=== PATIENT | male | born 1935 | race Caucasian/White ===

== ENCOUNTER 2017-07-15 12:34 | Inpatient (IN) | payer MEDICARE, MEDICAID ==
[~2017-07-15] VITALS: Ht 177.8 cm; Wt 64.9 kg
[~2017-07-15 12:34] MED LIST: ACET-2154 PO; ALBU2.5V38 IH; BISA10SU61 RC; CHOL100043 PO; DOCU-141 PO; FLUT1BLS IH; FURO-152 PO; IPRA0.2S6 IH; LEVE750T4 PO; LEVO500T2 PO; OMEP20TA5 PO; RIVA15TA2 PO; WHEA1POW6 PO
--- NOTE | 2017-07-15 13:07 | NUR ---
Pt.was seen by .
[2017-07-15] MEDS ORDERED: DOCU-141 PO (13:09)
[2017-07-15] MEDS ORDERED: GUAI237L83 PO (13:09)
[2017-07-15] MEDS ORDERED: MULT-213 PO (13:09)
[2017-07-15] MEDS ORDERED: LEVO500T2 PO (13:09)
[2017-07-15 14:06] LABS: BASOPHILS % (AUTO) 0.3 % (0.0-2.0); EOSINOPHILS # (AUTO) 0.4 K/uL (0.0-0.7); EOSINOPHILS % (AUTO) 6.3 % (0.0-7.0); HEMATOCRIT 40.6 % (36.7-47.1); HEMOGLOBIN 13.9 g/dL (12.5-16.3); LYMPHOCYTES # (AUTO) 1.8 K/uL (20.0-40.0); LYMPHOCYTES % (AUTO) 30.4 % (20.5-51.5); MEAN CORPUSCULAR HEMOGLOBIN 33.8 uug (23.8-33.4); MEAN CORPUSCULAR HGB CONC 34 g/dL (32.5-36.3); MEAN CORPUSCULAR VOLUME 98.5 fL (73.0-96.2); MONOCYTES # (AUTO) 0.8 K/uL (2.0-10.0); MONOCYTES % (AUTO) 13.2 % (0.0-11.0); NEUTROPHILS # (AUTO) 2.9 K/uL (1.8-8.9); NEUTROPHILS % (AUTO) 49.8 % (38.5-71.5); PLATELET COUNT (AUTO) 189 K/uL (152-348); RED BLOOD CELL COUNT(AUTO) 4.12 MIL/uL (4.06-5.63); WHITE BLOOD COUNT (AUTO) 5.9 K/uL (3.6-10.2)
[2017-07-15 14:30] LABS: CARBON DIOXIDE 27 mmol/L (21-32); CHLORIDE 105 mmol/L (98-107); CREATININE 1.3 mg/dL (0.6-1.3); GLUCOSE 103 mg/dL (74-106); UREA NITROGEN, BLOOD 28 mg/dL (7-18)
[2017-07-15 14:36] LABS: ALANINE AMINOTRANSFERASE 18 U/L (16-63); ALKALINE PHOSPHATASE 123 U/L (50-136); ASPARTATE AMINOTRANSFERASE 16 U/L (15-37); BILIRUBIN,TOTAL 0.8 mg/dL (0.2-1.0); CREATINE KINASE, TOTAL 50 U/L (39-308); TOTAL PROTEIN, SERUM 6.9 g/dL (6.4-8.2)
[2017-07-15 14:55] LABS: *BILIRUBIN,URIN NEGATIVE (NEGATIVE); *BLOOD, URINE NEGATIVE (NEGATIVE); *CLARITY,URINE CLEAR (CLEAR); *COLOR,URINE YELLOW (YELLOW); *KETONES,URINE NEGATIVE (NEGATIVE); *PROTEIN,URINE NEGATIVE (NEGATIVE); *UROBILINOGEN,URINE 0.2 E.U./dl (NORMAL); LEUKOCYTE ESTERASE ,URINE NEGATIVE (NEGATIVE); NITRITE, URINE NEGATIVE (NEGATIVE); PH,URINE 5.5 (5.0-8.0); UGLUCOSE NEGATIVE (NEGATIVE)
[2017-07-15 15:00] LABS: SQUAMOUS EPITHELIAL CELL,UR FEW /HPF (NONE SEEN); WBC,URINE NONE SEEN /HPF (0-3)
[2017-07-15 15:01] LABS: MUCUS,URINE FEW /LPF (0-FEW)
--- NOTE | 2017-07-15 15:01 | NUR ---
Pt.sleeping,no s/s of distress or pain noted.
[2017-07-15] MEDS ORDERED: CEFTRIAXONE 1 G in IV DEXTROSE 5% 50 ML IV ONE (16:25)
[2017-07-15] MEDS ORDERED: ALBUTEROL SULFATE 2.5 MG/ 0.5 ML NEBU NEB ONE (16:25)
[2017-07-15] MEDS ORDERED: methylPREDNISolone SOD SUCC 40 MG/ML VIAL IV ONE (16:30)
[2017-07-15] MEDS ORDERED: IPRATROPIUM BROMIDE 0.5 MG/2.5 ML NEBU NEB ONE (16:30)
[2017-07-15] MEDS ORDERED: CEFTRIAXONE 1 G VIAL ONE (16:54)
[2017-07-15] MEDS ORDERED: methylPREDNISolone SOD SUCC 40 MG/ML VIAL ONE (16:54)
--- NOTE | 2017-07-15 18:20 | NUR ---
pt.watching TV no s/s of distress.
[2017-07-15] MEDS ORDERED: ACETAMINOPHEN 325 MG TABLET PO PRN (18:45)
[2017-07-15] MEDS ORDERED: LEVOFLOXACIN 500 MG/D5W 500 MG in PREMIXED 1 EACH IV SCH (18:45)
[2017-07-15] MEDS ORDERED: ONDANSETRON 4 MG/2 ML VIAL IV PRN (18:45)
[2017-07-15] MEDS ORDERED: MORPHINE SULFATE 2 MG/1 ML DISP.SYRIN IV PRN (18:45)
[2017-07-15] MEDS ORDERED: BISACODYL 10 MG SUPP.RECT RC PRN (18:45)
--- NOTE | 2017-07-15 19:52 | NUR ---
REPORT RECIEVED FROM TUYET FARIA. ASSUMING CARE AT THIS TIME.
--- NOTE | 2017-07-15 20:14 | NUR ---
REPORT GIVEN TO HOMER BIENVENIDO
--- NOTE | 2017-07-15 20:30 | NUR ---
NURSING CLINICAL NOTE: Received patient from ED with a Dx of PNA/Cough. A&O X 4. On 2 L NC, sating well. VSS denies pain. Connected to the farm machinery engine mechanic controlled AFIB. fall and seizure precautions are initiated. will continue to monitor.
--- NOTE | 2017-07-15 20:31 | NUR ---
Pt. admitted to TELE, under care of Dr. RASMUSSEN Belongs List completed.
[2017-07-15 20:49] VITALS: BP 114/56
[2017-07-15] MEDS ORDERED: MORPHINE SULFATE 4 MG/1 ML DISP.SYRIN IV PRN (21:15)
[2017-07-15] MEDS ORDERED: GUAIFENESIN/DEXTROMETHORPHAN 5 ML UDC PO PRN (21:15)
[2017-07-15] MEDS: methylPREDNISolone SOD SUCC 40 MG/ML VIAL IV SCH (22:18)
[2017-07-15] MEDS: DOCUSATE SODIUM 100 MG CAPSULE PO SCH (22:18)
[2017-07-15] MEDS: LEVOFLOXACIN 750MG/D5W 750 MG in PREMIXED 1 EACH IV SCH (22:19)
[2017-07-15] MEDS: LEVETIRACETAM 500 MG TABLET PO SCH (22:29)
[2017-07-16] VITALS: BP 124/66
[2017-07-16 04:00] VITALS: BP 165/66
[2017-07-16 04:30] VITALS: BP 140/59
[2017-07-16] MEDS: methylPREDNISolone SOD SUCC 40 MG/ML VIAL IV SCH ×3 (06:09→21:12)
[2017-07-16] MEDS: PANTOPRAZOLE SODIUM 40 MG TABLET.DR PO SCH (06:09)
[2017-07-16 07:06] LABS: BASOPHILS % (AUTO) 0.1 % (0.0-2.0); HEMATOCRIT 41.5 % (36.7-47.1); HEMOGLOBIN 14.3 g/dL (12.5-16.3); LYMPHOCYTES # (AUTO) 0.6 K/uL (20.0-40.0); LYMPHOCYTES % (AUTO) 9.4 % (20.5-51.5); MEAN CORPUSCULAR HEMOGLOBIN 33.9 uug (23.8-33.4); MEAN CORPUSCULAR HGB CONC 34 g/dL (32.5-36.3); MEAN CORPUSCULAR VOLUME 98.4 fL (73.0-96.2); MONOCYTES # (AUTO) 0.1 K/uL (2.0-10.0); MONOCYTES % (AUTO) 1.6 % (0.0-11.0); NEUTROPHILS # (AUTO) 5.7 K/uL (1.8-8.9); NEUTROPHILS % (AUTO) 88.9 % (38.5-71.5); PLATELET COUNT (AUTO) 162 K/uL (152-348); RED BLOOD CELL COUNT(AUTO) 4.22 MIL/uL (4.06-5.63); WHITE BLOOD COUNT (AUTO) 6.4 K/uL (3.6-10.2)
[2017-07-16 07:16] LABS: ALANINE AMINOTRANSFERASE 17 U/L (16-63); ALKALINE PHOSPHATASE 116 U/L (50-136); ASPARTATE AMINOTRANSFERASE 13 U/L (15-37); BILIRUBIN,TOTAL 0.7 mg/dL (0.2-1.0); CARBON DIOXIDE 25 mmol/L (21-32); CHLORIDE 106 mmol/L (98-107); CHOLESTEROL 132 mg/dL (<200); CREATININE 1.5 mg/dL (0.6-1.3); GLUCOSE 144 mg/dL (74-106); HDL CHOLESTEROL 54 mg/dL (40-60); MAGNESIUM 1.9 mg/dL (1.8-2.4); PHOSPHOROUS 3.1 mg/dL (2.5-4.9); POTASSIUM 4.1 mmol/L (3.5-5.1); TOTAL PROTEIN, SERUM 7.2 g/dL (6.4-8.2); TRIGLYCERIDES 22 MG/DL (30-150); UREA NITROGEN, BLOOD 31 mg/dL (7-18)
[2017-07-16 07:23] LABS: IRON, SERUM 102 ug/dL (50-175)
[2017-07-16] MEDS: CHOLECALCIFEROL 1,000 UNIT TABLET PO SCH (08:05)
[2017-07-16] MEDS: FUROSEMIDE 20 MG/2 ML VIAL IV SCH (08:05)
[2017-07-16] MEDS: MULTIVIT, IRON, MIN NO. 8, FA TABLET PO SCH (08:05)
[2017-07-16] MEDS: FLUTICASONE/VILANTEROL 1 EACH BLST.W.DEV IH SCH (08:06)
[2017-07-16] MEDS ORDERED: DOCUSATE SODIUM 100 MG CAPSULE PO SCH (09:00)
[2017-07-16] MEDS: LEVETIRACETAM 500 MG TABLET PO SCH ×2 (09:59→20:51)
[2017-07-16 10:55] VITALS: BP 113/61
[2017-07-16 15:44] VITALS: BP 103/60
[2017-07-16] MEDS: RIVAROXABAN 15 MG TABLET PO SCH (17:23)
--- NOTE | 2017-07-16 17:58 | NUR ---
PT OBSERVED RESTING IN ROOM, NO SIGNS OF RESPIRATORY DISTRESS, BREATHING EQUALLY. PT IS ON 2 L NASAL CANULA. PT HAS GENERALIZED WEAKNESS AND IS AT BED REST AT THIS TIME. PT IS AOX4, CALM, COOPERATIVE, MEDICATION COMPLIANT. BED AT LOWEST LOCKED POSITION. CONTINUE TO MONITOR FOR SAFETY. PT HAS A HX OF SEIZURES PT IS ON SEIZURE PRECAUTIONS SIDE RAILS PADDED FOR SAFETY.
[2017-07-16 19:00] VITALS: BP 102/46
--- NOTE | 2017-07-16 20:00 | NUR ---
RECEIVED PT AWAKE IN BED, HE'S ALERT AND ORIENTED X4 WITH FORGETFULNESS BUT ABLE TO STATE HIS NEEDS. PT DENIES PAIN OR ANY DISCOMFORT, CALL LIGHT WITHIN PT'S REACH. WILL CONTINUE TO MONITOR PT.
[2017-07-16] MEDS: DOCUSATE SODIUM 100 MG CAPSULE PO SCH (20:52)
[2017-07-16] MEDS: CEFEPIME HCL 1 G in IV DEXTROSE 5% 50 ML IV SCH (20:54)
[2017-07-17] VITALS: BP 108/63
[2017-07-17 04:00] VITALS: BP 110/62
--- NOTE | 2017-07-17 04:05 | NUR ---
PT CONTINUE TO SLEEP, HE IS ON TELE WITH A-FIB RHYTHM AT 100, NO S/S OF PAIN OR DISTRESS AT PRESENT. NO SIGNIFICANT CHANGES IN STATUS. WILL CONTINUE TO MONITOR PT
[2017-07-17] MEDS: PANTOPRAZOLE SODIUM 40 MG TABLET.DR PO SCH (06:27)
[2017-07-17] MEDS: methylPREDNISolone SOD SUCC 40 MG/ML VIAL IV SCH ×3 (06:28→21:36)
[2017-07-17 06:52] LABS: HEMATOCRIT 41.9 % (36.7-47.1); LYMPHOCYTES # (AUTO) 1.1 K/uL (20.0-40.0); MEAN CORPUSCULAR HEMOGLOBIN 32.8 uug (23.8-33.4); MEAN CORPUSCULAR HGB CONC 33 g/dL (32.5-36.3); MEAN CORPUSCULAR VOLUME 98.4 fL (73.0-96.2); MONOCYTES # (AUTO) 0.9 K/uL (2.0-10.0); MONOCYTES % (AUTO) 4.6 % (0.0-11.0); NEUTROPHILS # (AUTO) 16.5 K/uL (1.8-8.9); NEUTROPHILS % (AUTO) 89.4 % (38.5-71.5); PLATELET COUNT (AUTO) 168 K/uL (152-348); RED BLOOD CELL COUNT(AUTO) 4.26 MIL/uL (4.06-5.63)
[2017-07-17 07:09] LABS: WHITE BLOOD COUNT (AUTO) 18.4 K/uL (3.6-10.2)
[2017-07-17 07:17] LABS: CARBON DIOXIDE 30 mmol/L (21-32); CHLORIDE 103 mmol/L (98-107); CREATININE 1.5 mg/dL (0.6-1.3); GLUCOSE 137 mg/dL (74-106); MAGNESIUM 2.3 mg/dL (1.8-2.4); PHOSPHOROUS 4.1 mg/dL (2.5-4.9); POTASSIUM 4.6 mmol/L (3.5-5.1); UREA NITROGEN, BLOOD 45 mg/dL (7-18)
[2017-07-17] MEDS: MULTIVIT, IRON, MIN NO. 8, FA TABLET PO SCH (08:01)
[2017-07-17] MEDS: FLUTICASONE/VILANTEROL 1 EACH BLST.W.DEV IH SCH (08:02)
[2017-07-17] MEDS: CHOLECALCIFEROL 1,000 UNIT TABLET PO SCH (08:02)
[2017-07-17] MEDS: FUROSEMIDE 20 MG/2 ML VIAL IV SCH (08:02)
[2017-07-17] MEDS: LEVETIRACETAM 500 MG TABLET PO SCH ×2 (08:02→21:35)
[2017-07-17] MEDS: CEFEPIME HCL 1 G in IV DEXTROSE 5% 50 ML IV SCH ×2 (08:57→21:35)
[2017-07-17 11:34] VITALS: BP 110/57
[2017-07-17 15:24] VITALS: BP 100/61
[2017-07-17] MEDS: RIVAROXABAN 15 MG TABLET PO SCH (17:44)
--- NOTE | 2017-07-17 18:57 | NUR ---
PT IS CALM, COOPERATIVE, MEDICATION COMPLIANT, IV INTACT, PHYSICAL THERAPY WALKED PT TODAY. PT WAS ABLE TO TOLERATE ACTIVITY. PT WAS TAUGHT BREATHING TECHNIQUES FOR DECREASING ANXIETY. PT VERBALIZES AN UNDERSTANDING AND AGREES TO USE THAT TECHNIQUE WHEN ANXIOUS.
[2017-07-17 20:00] VITALS: BP 95/53
[2017-07-17] MEDS: DOCUSATE SODIUM 100 MG CAPSULE PO SCH (21:35)
[2017-07-17] MEDS: LEVOFLOXACIN 750MG/D5W 750 MG in PREMIXED 1 EACH IV SCH (22:44)
[2017-07-18 04:00] VITALS: BP 99/55
--- NOTE | 2017-07-18 06:00 | NUR ---
Pt slept well, in no acute distress, no SOB. Pt is seizure precaution, no activity of seizures noted. IV antibiotics administered as ordered, no adverse reaction noted. Patient kept clean/dry, repositioned for comfort. Safety measures in place, bed alarm on. Will continue to monitor.
[2017-07-18] MEDS: PANTOPRAZOLE SODIUM 40 MG TABLET.DR PO SCH (06:02)
[2017-07-18 07:03] LABS: HEMOGLOBIN 13.3 g/dL (12.5-16.3); LYMPHOCYTES % (AUTO) 7.6 % (20.5-51.5); MEAN CORPUSCULAR HEMOGLOBIN 33.3 uug (23.8-33.4); MEAN CORPUSCULAR HGB CONC 34 g/dL (32.5-36.3); MEAN CORPUSCULAR VOLUME 97.5 fL (73.0-96.2); MONOCYTES # (AUTO) 0.7 K/uL (2.0-10.0); MONOCYTES % (AUTO) 5.3 % (0.0-11.0); NEUTROPHILS # (AUTO) 11.5 K/uL (1.8-8.9); NEUTROPHILS % (AUTO) 87.1 % (38.5-71.5); PLATELET COUNT (AUTO) 151 K/uL (152-348)
[2017-07-18 07:16] LABS: WHITE BLOOD COUNT (AUTO) 13.2 K/uL (3.6-10.2)
[2017-07-18 07:37] LABS: ALANINE AMINOTRANSFERASE 19 U/L (16-63); ALKALINE PHOSPHATASE 93 U/L (50-136); ASPARTATE AMINOTRANSFERASE 13 U/L (15-37); BILIRUBIN,TOTAL 0.6 mg/dL (0.2-1.0); CARBON DIOXIDE 29 mmol/L (21-32); CHLORIDE 102 mmol/L (98-107); CREATININE 1.3 mg/dL (0.6-1.3); GLUCOSE 129 mg/dL (74-106); MAGNESIUM 2.2 mg/dL (1.8-2.4); PHOSPHOROUS 3.5 mg/dL (2.5-4.9); POTASSIUM 4.5 mmol/L (3.5-5.1); TOTAL PROTEIN, SERUM 6.5 g/dL (6.4-8.2); UREA NITROGEN, BLOOD 47 mg/dL (7-18)
--- NOTE | 2017-07-18 07:47 | NUR ---
RECEIVED CLIENT SLEEPING IN BED IN A SEMI VILLARREAL POSITION. NO APPARENT SIGNS AND SYMPTOMS OF SOB, PAIN, DISTRESS OR DISCOMFORT.
[2017-07-18] MEDS: CEFEPIME HCL 1 G in IV DEXTROSE 5% 50 ML IV SCH ×2 (09:31→20:05)
[2017-07-18] MEDS: methylPREDNISolone SOD SUCC 40 MG/ML VIAL IV SCH ×2 (09:31→20:10)
[2017-07-18] MEDS: MULTIVIT, IRON, MIN NO. 8, FA TABLET PO SCH (09:32)
[2017-07-18] MEDS: CHOLECALCIFEROL 1,000 UNIT TABLET PO SCH (09:32)
[2017-07-18] MEDS: LEVETIRACETAM 500 MG TABLET PO SCH ×2 (09:32→20:05)
[2017-07-18] MEDS: FLUTICASONE/VILANTEROL 1 EACH BLST.W.DEV IH SCH (09:37)
[2017-07-18 11:25] VITALS: BP 106/48
[2017-07-18 15:36] VITALS: BP 109/61
[2017-07-18] MEDS: RIVAROXABAN 15 MG TABLET PO SCH (17:01)
--- NOTE | 2017-07-18 17:57 | NUR ---
INFORMED BY CASE MANAGEMENT THAT THE CLIENT WILL BE DISCHARGE TO [facility]. REPORT GIVEN TO CAPO.
[2017-07-18] MEDS ORDERED: LEVO500T2 PO (18:03)
[2017-07-18] MEDS ORDERED: PANT40TA2 PO (18:03)
[2017-07-18] MEDS ORDERED: CEFE1VIA3 IV (18:03)
[2017-07-18] MEDS ORDERED: LACT1CAP57 PO (18:03)
--- NOTE | 2017-07-18 18:53 | NUR ---
Client is in bed in a semi fowlers position. Client shows no signs and symptoms of pain, distress, discomfort or SOB. Non-Productive cough noted. Client states he is fine, no apparent signs and symptoms of SOB, pain, distress or discomfort. Client has been compliant with all nursing care and medication administration. Able to voice his needs, able to eat on his own. Bed is at the lowest position for safety and call light within reach for assistance. Report will be given to night the shift and endorsement to transfer the client to [facility] will be given. Discharge papers are ready, waiting on doctor to finalize orders.
--- NOTE | 2017-07-18 19:30 | NUR ---
Received patient resting in bed, alert, in no distress. Safety measures in place. Discharge process pending, patient to be discharged to Acute Rehab Unit.
[2017-07-18 20:00] VITALS: BP 91/55
[2017-07-18] MEDS: DOCUSATE SODIUM 100 MG CAPSULE PO SCH (20:05)
[2017-07-18] MEDS ORDERED: LACTOBACILLUS RHAMNOSUS GG 1 EACH CAPSULE PO SCH (21:00)
--- NOTE | 2017-07-18 21:00 | NUR ---
Patient discharged to ARU, transported via wheelchair, accompanied by NAILING MACHINE OPERATOR. Dishcarge papers with patient. Patient has no belongings, belonging list done. VS stable. All 2100 scheduled medications administered as ordered, ARU notified.
[2017-07-19 12:29] LABS: *BILIRUBIN,URIN NEGATIVE (NEGATIVE); *BLOOD, URINE NEGATIVE (NEGATIVE); *CLARITY,URINE CLEAR (CLEAR); *COLOR,URINE LIGHT YELLOW (YELLOW); *KETONES,URINE NEGATIVE (NEGATIVE); *PROTEIN,URINE NEGATIVE (NEGATIVE); *UROBILINOGEN,URINE 0.2 E.U./dl (NORMAL); LEUKOCYTE ESTERASE ,URINE NEGATIVE (NEGATIVE); NITRITE, URINE NEGATIVE (NEGATIVE); PH,URINE 6.5 (5.0-8.0); UGLUCOSE NEGATIVE (NEGATIVE)
[2017-07-19 13:02] LABS: BACTERIA,URINE NONE SEEN /HPF (NONE SEEN); RBC,URINE 0-3 /HPF (0-3); SQUAMOUS EPITHELIAL CELL,UR FEW /HPF (NONE SEEN); WBC,URINE 0-3 /HPF (0-3)
[2017-07-19 13:06] LABS: *URINE TOTAL PROTEIN RANDOM < 6.0 mg/dL (<150/24HR)
== END 2017-07-18 21:15 | DRG 177 ==
LOC: ER 12:34 → TELE 20:16 → MED 07-17 11:15
PROVIDERS: ADMIT Internal Medicine; ATTEND Internal Medicine
DX: J69.0 Pneumonitis due to inhalation of food and vomit (principal); I50.33 Acute on chronic diastolic (congestive) heart failure; N17.0 Acute kidney failure with tubular necrosis; D68.59 Other primary thrombophilia; I27.20 Pulmonary hypertension, unspecified; I07.1 Rheumatic tricuspid insufficiency; J44.1 Chronic obstructive pulmonary disease with (acute) exacerbation; I48.2 Chronic atrial fibrillation; G40.909 Epilepsy, unspecified, not intractable, without status epilepticus; G80.9 Cerebral palsy, unspecified; M41.9 Scoliosis, unspecified; R13.10 Dysphagia, unspecified; K21.9 Gastro-esophageal reflux disease without esophagitis; M47.9 Spondylosis, unspecified; Z74.09 Other reduced mobility; Z79.01 Long term (current) use of anticoagulants; Z79.899 Other long term (current) drug therapy; Z87.01 Personal history of pneumonia (recurrent); F03.90 Unspecified dementia, unspecified severity, without behavioral disturbance, psychotic disturbance, mood disturbance, and anxiety; I45.10 Unspecified right bundle-branch block; Z87.898 Personal history of other specified conditions; M81.0 Age-related osteoporosis without current pathological fracture
CPT/HCPCS: 36415; 70030-TC; 71045; 76770; 83550; 83735; 84100; 84156; 84300; 84443; 85025; 85610; 87040; 87400; 93005; 93307; 97110; 97116; 97530; A4663; J0692; J0696; J1940; J1956; J2920; J7060

== ENCOUNTER 2017-07-17 16:12 | Inpatient (IN) | payer MEDICARE, MEDICAID ==
[~2017-07-17] VITALS: Ht 177.8 cm; Wt 65.8 kg
[~2017-07-17 16:12] MED LIST changes: -ALBU2.5V38 IH; +GUAI237L83 PO; -IPRA0.2S6 IH; +MULT-213 PO; -WHEA1POW6 PO
[2017-07-18] MEDS ORDERED: LEVO500T2 PO (18:03)
[2017-07-18] MEDS ORDERED: LACT1CAP57 PO (18:03)
[2017-07-18] MEDS ORDERED: PANT40TA2 PO (18:03)
[2017-07-18] MEDS ORDERED: CEFE1VIA3 IV (18:03)
--- NOTE | 2017-07-18 21:05 | NUR ---
PT ARRIVED ON ARU IN WHEELCHAIR FORM MEDICAL SURGICAL FLOOR. PT ALERT AND ORIENTED, NO DISTRESS NOTED. COMPLIANT WITH NURSING CARE. SPOKE WITH DR RITTER ABOUT ADMISSION. SEIZURE PRECAUTIONS IN PLACE. CLEAN AND DRY. OFFLOADING PT TO ONE SIDE, Z GUARD APPLIED. SAFETY MAINTAINED. CALL LIGHT WITHIN REACH. EDUCATED PT ON IMPORTANCE TO USE CALL LIGHT BEFORE TRYING TO GET UP. BED ALARM ON. WILL CONTINUE TO MONITOR.
[2017-07-18] MEDS ORDERED: Z GUARD REMEDY PASTE 57 GM TUBE TOP PRN (21:15)
[2017-07-18 21:58] VITALS: BP 101/61
[2017-07-18] MEDS ORDERED: BISACODYL 10 MG SUPP.RECT RC PRN (22:30)
[2017-07-18] MEDS ORDERED: ACETAMINOPHEN 325 MG TABLET PO PRN (22:30)
[2017-07-19] MEDS ORDERED: PANTOPRAZOLE SODIUM 40 MG TABLET.DR PO ONE (05:54)
[2017-07-19] MEDS: PANTOPRAZOLE SODIUM 40 MG TABLET.DR PO SCH (06:05)
--- NOTE | 2017-07-19 06:48 | NUR ---
PT ALERT AND ORIENTED IN BED. NO DISTRESS NOTED. IV INTACT. COMPLIANT WITH NURSING CARE AND MEDICATION. CLEAN AND DRY. TURNED AND REPOSITIONED. SAFETY MAINTAINED. SEIZURE PRECAUTIONS MAINTAINED. CALL LIGHT WITHIN REACH.
[2017-07-19 08:00] VITALS: BP 120/64
[2017-07-19] MEDS ORDERED: CEFEPIME HCL 1 G VIAL IV SCH (09:00)
[2017-07-19] MEDS ORDERED: GUAIFENESIN/DEXTROMETHORPHAN 5 ML UDC PO PRN (09:00)
[2017-07-19] MEDS ORDERED: DOCUSATE SODIUM 100 MG CAPSULE PO SCH (09:00)
[2017-07-19] MEDS: LEVETIRACETAM 500 MG TABLET PO SCH ×2 (10:00→20:42)
[2017-07-19] MEDS: CHOLECALCIFEROL 1,000 UNIT TABLET PO SCH (10:04)
[2017-07-19] MEDS: FUROSEMIDE 20 MG TABLET PO SCH (10:04)
[2017-07-19] MEDS: MULTIVIT, IRON, MIN NO. 8, FA TABLET PO SCH (10:04)
[2017-07-19] MEDS: LACTOBACILLUS RHAMNOSUS GG 1 EACH CAPSULE PO SCH ×2 (10:04→20:42)
[2017-07-19] MEDS: FLUTICASONE/VILANTEROL 1 EACH BLST.W.DEV IH SCH (10:48)
[2017-07-19] MEDS: LEVOFLOXACIN 750 MG TABLET PO SCH (10:48)
[2017-07-19] MEDS ORDERED: CEFEPIME HCL 1 G in IV DEXTROSE 5% 50 ML IV SCH (11:00)
--- NOTE | 2017-07-19 12:15 | NUR ---
SBAR report received from night clerk auditor, board updated. Pt compliant with all routine medications. New IV inserted on left forearm 22 roberta, flushing well. Pt denies any c/o pain. Pt assessed. Seizure precautions in place. Call light within reach. Bed in low and locked position. All safety and comfort needs met at this time. Will continue to monitor.
[2017-07-19] MEDS: CEFEPIME HCL 1 G in IV DEXTROSE 5% 50 ML IV SCH ×2 (14:16→20:45)
[2017-07-19] MEDS: RIVAROXABAN 15 MG TABLET PO SCH (17:11)
--- NOTE | 2017-07-19 19:03 | NUR ---
Pt evaluated with OT and PT. Pt assisted to use toilet per request , escorted via walker. Pt urine sample collected and specimen sent to lab. BMx1. Pt assisted by GRANITE SANDBLASTER APPRENTICE from toilet to bed, Pt overcome by LE weakness was assisted by sliding to sit down on the floor with GRANITE SANDBLASTER APPRENTICE. GRANITE SANDBLASTER APPRENTICE called for assistance, upon arriving in room, Pt helped safely back into bed by staff. Pt assessed, no new injuries found and No c/o pain or any distress noted. Plan to utilize diaper for all toileting needs discussed and agreed upon. Call light within reach. Will endorse plan of care to on coming overnight caregiver.
--- NOTE | 2017-07-19 19:40 | NUR ---
Received patient laying in bed, asleep, and not in respiratory distress. Vital signs taken and recorded. IV heplock on LA, secured with transparent dressing dry and intact. Flushed and no signs of any infiltration. Safety measures provided. Call light in reach. will monitor the patient.
[2017-07-19 19:56] VITALS: BP 102/60
[2017-07-19] MEDS: DOCUSATE SODIUM 100 MG CAPSULE PO SCH (20:42)
[2017-07-20] MEDS: PANTOPRAZOLE SODIUM 40 MG TABLET.DR PO SCH (06:33)
[2017-07-20] MEDS ORDERED: LEVOFLOXACIN 500 MG TABLET PO SCH (09:00)
[2017-07-20] MEDS: LEVETIRACETAM 500 MG TABLET PO SCH ×2 (09:55→20:53)
[2017-07-20] MEDS: MULTIVIT, IRON, MIN NO. 8, FA TABLET PO SCH (09:56)
[2017-07-20] MEDS: FUROSEMIDE 20 MG TABLET PO SCH (09:56)
[2017-07-20] MEDS: LACTOBACILLUS RHAMNOSUS GG 1 EACH CAPSULE PO SCH ×2 (09:56→20:53)
[2017-07-20] MEDS: CHOLECALCIFEROL 1,000 UNIT TABLET PO SCH (09:56)
[2017-07-20] MEDS: FLUTICASONE/VILANTEROL 1 EACH BLST.W.DEV IH SCH (09:56)
[2017-07-20] MEDS: CEFEPIME HCL 1 G in IV DEXTROSE 5% 50 ML IV SCH ×2 (10:01→20:53)
[2017-07-20 10:16] VITALS: BP 102/55
--- NOTE | 2017-07-20 10:27 | NUR ---
SBAR report received, board updated. Pt assessed, awake, alert, and oriented. Pt able to make needs known. Pt denies any c/o pain with no SOB evident at this time. Pt compliant with all routine morning medications. Plan of care for today discussed along with goal. Bed in low, locked position with seizure measures in place. Call light within reach. Will continue to monitor.
[2017-07-20] MEDS: RIVAROXABAN 15 MG TABLET PO SCH (18:14)
--- NOTE | 2017-07-20 18:45 | NUR ---
Pt sitting comfortably in semi-fowlers position. Consumed 100% of dinner provided. Pt voided in diaper x1. Pt clean, dry, and repositioned for comfort. Seizure and aspiration precautions in place. Call light within reach. Pt seen by MD, no new orders received. Will continue to monitor and endorse to on coming automotive parts clerk.
--- NOTE | 2017-07-20 19:35 | NUR ---
Seen patient during rounds, in bed, awake, alert and verbally responsive. Vital signs taken and recorded. Breathing even and nonlabored. Safety measures provided. Bed in low position. Placed call light in reach. will monitor the patient.
[2017-07-20 20:36] VITALS: BP 106/65
[2017-07-20] MEDS: DOCUSATE SODIUM 100 MG CAPSULE PO SCH (20:53)
[2017-07-21] MEDS: LEVOFLOXACIN 750 MG TABLET PO SCH (06:19)
[2017-07-21] MEDS: PANTOPRAZOLE SODIUM 40 MG TABLET.DR PO SCH (06:50)
--- NOTE | 2017-07-21 07:30 | NUR ---
Patient noted laying in bed, patient assisted to high fowlers at this time, no complaints of pain, no signs of distress, call light in reach, bed locked and in lowest position, x2 bed rails in place
[2017-07-21] MEDS: MULTIVIT, IRON, MIN NO. 8, FA TABLET PO SCH (08:38)
[2017-07-21] MEDS: CHOLECALCIFEROL 1,000 UNIT TABLET PO SCH (08:38)
[2017-07-21] MEDS: LEVETIRACETAM 500 MG TABLET PO SCH ×2 (08:39→20:54)
[2017-07-21] MEDS: LACTOBACILLUS RHAMNOSUS GG 1 EACH CAPSULE PO SCH ×2 (08:40→20:53)
[2017-07-21] MEDS: FUROSEMIDE 20 MG TABLET PO SCH (08:41)
[2017-07-21] MEDS: FLUTICASONE/VILANTEROL 1 EACH BLST.W.DEV IH SCH (08:42)
[2017-07-21] MEDS: CEFEPIME HCL 1 G in IV DEXTROSE 5% 50 ML IV SCH (09:43)
[2017-07-21 09:46] VITALS: BP 96/50
[2017-07-21] MEDS: RIVAROXABAN 15 MG TABLET PO SCH (17:46)
--- NOTE | 2017-07-21 19:35 | NUR ---
Received patient from AM nurse, in bed, awake, alert and verbally responsive. Vital signs taken and recorded. Breathing even and nonlabored. Safety measures provided. Bed in low position. Placed call light in reach. will monitor the patient.
[2017-07-21 20:52] VITALS: BP 108/63
[2017-07-21] MEDS: DOCUSATE SODIUM 100 MG CAPSULE PO SCH (20:54)
[2017-07-22] MEDS: PANTOPRAZOLE SODIUM 40 MG TABLET.DR PO SCH (06:24)
--- NOTE | 2017-07-22 06:41 | NUR ---
Pt. able to sleep the entire shift. Vital signs stable, no signs of any acute distress. Diaper changed per soiling, no BM noted. Saline lock IV discontinued, removed with tip intact. Pressure dressing applied to prevent bleeding. Covered with dry cotton and secured with bandage. will endorse to AM shift nurse.
[2017-07-22 07:45] LABS: BASOPHILS % (AUTO) 0.1 % (0.0-2.0); EOSINOPHILS # (AUTO) 0.4 K/uL (0.0-0.7); EOSINOPHILS % (AUTO) 3.9 % (0.0-7.0); HEMATOCRIT 40.2 % (36.7-47.1); HEMOGLOBIN 14.1 g/dL (12.5-16.3); LYMPHOCYTES # (AUTO) 2.5 K/uL (20.0-40.0); LYMPHOCYTES % (AUTO) 25.3 % (20.5-51.5); MEAN CORPUSCULAR HEMOGLOBIN 34.1 uug (23.8-33.4); MEAN CORPUSCULAR HGB CONC 35 g/dL (32.5-36.3); MEAN CORPUSCULAR VOLUME 97.5 fL (73.0-96.2); MONOCYTES # (AUTO) 1.1 K/uL (2.0-10.0); MONOCYTES % (AUTO) 10.9 % (0.0-11.0); NEUTROPHILS # (AUTO) 5.8 K/uL (1.8-8.9); NEUTROPHILS % (AUTO) 59.8 % (38.5-71.5); PLATELET COUNT (AUTO) 155 K/uL (152-348); RED BLOOD CELL COUNT(AUTO) 4.12 MIL/uL (4.06-5.63); WHITE BLOOD COUNT (AUTO) 9.8 K/uL (3.6-10.2)
[2017-07-22 07:58] LABS: CARBON DIOXIDE 33 mmol/L (21-32); CHLORIDE 106 mmol/L (98-107); CREATININE 1.2 mg/dL (0.6-1.3); GLUCOSE 90 mg/dL (74-106); POTASSIUM 4.9 mmol/L (3.5-5.1); UREA NITROGEN, BLOOD 33 mg/dL (7-18)
--- NOTE | 2017-07-22 08:06 | NUR ---
Patient noted resting in bed at this time, assisted to sitting position in bed, no complaints of pain at this time, no signs of distress, call light in reach, bed locked and in lowest position, bed alarm in place
[2017-07-22 08:12] VITALS: BP 99/68
[2017-07-22] MEDS: LACTOBACILLUS RHAMNOSUS GG 1 EACH CAPSULE PO SCH ×2 (09:01→20:59)
[2017-07-22] MEDS: MULTIVIT, IRON, MIN NO. 8, FA TABLET PO SCH (09:02)
[2017-07-22] MEDS: CHOLECALCIFEROL 1,000 UNIT TABLET PO SCH (09:02)
[2017-07-22] MEDS: FUROSEMIDE 20 MG TABLET PO SCH (09:02)
[2017-07-22] MEDS: LEVETIRACETAM 500 MG TABLET PO SCH ×2 (09:02→20:59)
[2017-07-22] MEDS: FLUTICASONE/VILANTEROL 1 EACH BLST.W.DEV IH SCH (09:10)
[2017-07-22] MEDS: RIVAROXABAN 15 MG TABLET PO SCH (17:05)
--- NOTE | 2017-07-22 20:30 | NUR ---
Received pt on bed alert and awake. No acute distress noted. No complaints of pain or discomfort. No SOB. All due meds given as ordered, tolerated well. No signs of aspiration was noted. Vital signs stable. Kept clean, dry and comfortable. Call light place within reach. All needs attended.
[2017-07-22 20:32] VITALS: BP 112/69
[2017-07-22] MEDS: DOCUSATE SODIUM 100 MG CAPSULE PO SCH (20:59)
--- NOTE | 2017-07-23 05:34 | NUR ---
Pt slept well throughout the shift with no acute distress noted. Denies pain. No SOB noted. Changed per soiling. Side rails up x2. Bed alarm on and in lowest position. Call light placed within reach. All needs met.
[2017-07-23] MEDS: PANTOPRAZOLE SODIUM 40 MG TABLET.DR PO SCH (06:21)
--- NOTE | 2017-07-23 07:30 | NUR ---
Patient noted resting in bed with eyes with eyes closed, no complaints of pain noted, no signs of distress, call light in reach, bed locked and in lowest position, bed alarm in place
[2017-07-23 08:00] VITALS: BP 109/50
[2017-07-23] MEDS: LEVETIRACETAM 500 MG TABLET PO SCH ×2 (08:20→21:20)
[2017-07-23] MEDS: LACTOBACILLUS RHAMNOSUS GG 1 EACH CAPSULE PO SCH ×2 (08:21→21:19)
[2017-07-23] MEDS: MULTIVIT, IRON, MIN NO. 8, FA TABLET PO SCH (08:26)
[2017-07-23] MEDS: FUROSEMIDE 20 MG TABLET PO SCH (08:26)
[2017-07-23] MEDS: CHOLECALCIFEROL 1,000 UNIT TABLET PO SCH (08:26)
[2017-07-23] MEDS: FLUTICASONE/VILANTEROL 1 EACH BLST.W.DEV IH SCH (08:26)
[2017-07-23] MEDS: RIVAROXABAN 15 MG TABLET PO SCH (17:26)
--- NOTE | 2017-07-23 19:30 | NUR ---
Received patient laying in bed. Alert and verbally responsive. Able to make needs known. No c/o pain and discomfort. No acute distress. No SOB. Kept clean and dry. All needs attended to promptly. Call light within reach. Will continue to monitor.
[2017-07-23 20:47] VITALS: BP 92/63
[2017-07-23] MEDS: DOCUSATE SODIUM 100 MG CAPSULE PO SCH (21:23)
--- NOTE | 2017-07-24 06:32 | NUR ---
Patient slept comfortably throughout the night. No c/o pain and discomfort. No acute distress. No SOB. Kept clean and dry. All needs attended to promptly. Call light within reach. Will continue to monitor.
[2017-07-24] MEDS: PANTOPRAZOLE SODIUM 40 MG TABLET.DR PO SCH (06:56)
[2017-07-24 08:00] VITALS: BP 95/59
[2017-07-24] MEDS: FLUTICASONE/VILANTEROL 1 EACH BLST.W.DEV IH SCH (08:56)
[2017-07-24] MEDS: LEVETIRACETAM 500 MG TABLET PO SCH ×2 (08:57→20:40)
[2017-07-24] MEDS: CHOLECALCIFEROL 1,000 UNIT TABLET PO SCH (08:57)
[2017-07-24] MEDS: MULTIVIT, IRON, MIN NO. 8, FA TABLET PO SCH (08:57)
[2017-07-24] MEDS: FUROSEMIDE 20 MG TABLET PO SCH (08:57)
[2017-07-24] MEDS: LACTOBACILLUS RHAMNOSUS GG 1 EACH CAPSULE PO SCH ×2 (08:57→20:40)
--- NOTE | 2017-07-24 09:37 | NUR ---
SBAR report received from night custodian, board updated. Pt assessed, no c/o pain or SOB at this time. Pt compliant with all routine morning medication administration. Pt switched rooms to 120 A. Pt bed in locked and lowest position, side rails up x2. All comfort and safety measures met. Call light and personal items within reach. Will continue to monitor.
--- NOTE | 2017-07-24 14:04 | NUR ---
INTERDISCIPLINARY TEAM CONFERENCE
[2017-07-24] MEDS: RIVAROXABAN 15 MG TABLET PO SCH (17:47)
--- NOTE | 2017-07-24 19:18 | NUR ---
Pt resting comfortably in semi-fowlers position in bed, after consuming 100% of dinner. Pt compliant with all routine medication administration. Aspiration precautions in place. All comfort and safety needs met. Pt bed in locked and lowest position, with side rails up x2. Call light within reach. Will continue to monitor and endorse to oncoming warehouse shift supervisor.
--- NOTE | 2017-07-24 19:45 | NUR ---
Received pt lying comfortably with HOB elevated. Awake, alert, pleasant and cooperative to care. Not in any form of distress. No complaints of pain or discomfort at this time. No SOB noted. Safety and fall precautions observed and maintained. Kept clean, dry and comfortable. Vital signs stable. Call light within reach. All needs attended.
[2017-07-24 20:38] VITALS: BP 120/71
[2017-07-24] MEDS: DOCUSATE SODIUM 100 MG CAPSULE PO SCH (20:40)
--- NOTE | 2017-07-25 05:08 | NUR ---
Patient slept comfortably throughout the shift. No acute distress noted. No complaints of pain or discomfort. All due meds taken and well tolerated. No signs of aspiration of aspiration noted. Kept pt clean, dry and comfortable. frequently checked for safety. Side rails up x2. Bed alarm on. bed locked and in lowest position. call light within reach. All needs attended.
[2017-07-25] MEDS: PANTOPRAZOLE SODIUM 40 MG TABLET.DR PO SCH (06:23)
[2017-07-25 08:57] VITALS: BP 108/72
[2017-07-25] MEDS: CHOLECALCIFEROL 1,000 UNIT TABLET PO SCH (09:03)
[2017-07-25] MEDS: FUROSEMIDE 20 MG TABLET PO SCH (09:03)
[2017-07-25] MEDS: MULTIVIT, IRON, MIN NO. 8, FA TABLET PO SCH (09:03)
[2017-07-25] MEDS: LACTOBACILLUS RHAMNOSUS GG 1 EACH CAPSULE PO SCH ×2 (09:03→20:01)
[2017-07-25] MEDS: LEVETIRACETAM 500 MG TABLET PO SCH ×2 (09:03→20:01)
--- NOTE | 2017-07-25 09:45 | NUR ---
pt seen on rounding. pt continues to be alert and oriented x 3. vitals stable. pt participated in therapy. pt showed signs of weakness. aspiration precautions implemented. pt took meds whole with chocolate pudding. pt does not seem to handle thin fluids. will follow up with ST for orders.
[2017-07-25] MEDS: FLUTICASONE/VILANTEROL 1 EACH BLST.W.DEV IH SCH (10:56)
[2017-07-25] MEDS: RIVAROXABAN 15 MG TABLET PO SCH (17:28)
--- NOTE | 2017-07-25 19:24 | NUR ---
pt stable throuhgout the day. pt participated in therapy. aspiration precaution implemented. pt seemed aspirate on thin liquids. pt took meds whole with chocolate. pt continues to be a fall risk. vitals stable. will endorse to hotel night auditor nurse.
--- NOTE | 2017-07-25 19:30 | NUR ---
PT ALERT AND ORIENTED IN BED. NO DISTRESS NOTED. COMPLIANT WITH NURSING CARE. SAFETY MAINTAINED. CALL LIGHT WITHIN REACH. BED ALARM ON. WILL CONTINUE TO MONITOR.
[2017-07-25] MEDS: DOCUSATE SODIUM 100 MG CAPSULE PO SCH (20:00)
[2017-07-25 20:40] VITALS: BP 117/78
[2017-07-26] MEDS: PANTOPRAZOLE SODIUM 40 MG TABLET.DR PO SCH (06:01)
--- NOTE | 2017-07-26 07:02 | NUR ---
PT ALERT AND ORIENTED IN BED. NO DISTRESS NOTED. SLEPT WELL THROUGHOUT THE NIGHT. CLEAN AND DRY. TURNED AND REPOSITIONED. SAFETY MAINTAINED. CALL LIGHT WITHIN REACH. BED ALARM ON.
[2017-07-26] MEDS: LEVETIRACETAM 500 MG TABLET PO SCH ×2 (08:01→20:55)
[2017-07-26] MEDS: FUROSEMIDE 20 MG TABLET PO SCH (08:01)
[2017-07-26] MEDS: FLUTICASONE/VILANTEROL 1 EACH BLST.W.DEV IH SCH (08:01)
[2017-07-26] MEDS: MULTIVIT, IRON, MIN NO. 8, FA TABLET PO SCH (08:01)
[2017-07-26] MEDS: CHOLECALCIFEROL 1,000 UNIT TABLET PO SCH (08:01)
[2017-07-26] MEDS: LACTOBACILLUS RHAMNOSUS GG 1 EACH CAPSULE PO SCH ×2 (08:01→20:54)
[2017-07-26 08:03] VITALS: BP 94/55
--- NOTE | 2017-07-26 09:42 | NUR ---
pt seen o rounding. pt continues to be alert and oriented x 3. pt follows commands. vitals stable. no aspiration noted when passing meds. pt had a shower. no new injuries noted. will continue to monitor.
[2017-07-26] MEDS: RIVAROXABAN 15 MG TABLET PO SCH (17:16)
[2017-07-26] MEDS ORDERED: MAGNESIUM HYDROXIDE 30 ML LIQUID UDC PO PRN (18:00)
[2017-07-26] MEDS ORDERED: MAGNESIUM HYDROXIDE 30 ML LIQUID UDC PO ONE (18:00)
--- NOTE | 2017-07-26 18:09 | NUR ---
pt given mom to induce bm because pt has not have one for two days as ordered by dr monroy. mera continue to monitor for signs of constipation.
--- NOTE | 2017-07-26 18:25 | NUR ---
pt stable throuhgout the day. pt is max assist. no seizures noted. no aspirations throughout the day. pt participated in therapy. will endorse to shift manager nurse.
--- NOTE | 2017-07-26 20:30 | NUR ---
Received pt lying comfortably with HOB elevated. No acute distress noted. Denies pain at this time. Breathing even and unlabored with normal respirations. All due meds given as ordered, tolerated well. No signs of aspiration was noted. Incontinent care rendered. safety and fall precautions observed and maintained. Call light placed within reach. All needs attended.
[2017-07-26 20:40] VITALS: BP 132/69
[2017-07-26] MEDS: DOCUSATE SODIUM 100 MG CAPSULE PO SCH (20:54)
--- NOTE | 2017-07-27 05:29 | NUR ---
Pt slept comfortable throughout the night with no signs of distress noted. No complaints of pain or discomfort. No signs of aspiration was noted. Frequently checked for safety. Incontinent care rendered. Side rails up x2. Bed alarm on and in lowest position. Call light placed within reach. All needs met.
[2017-07-27] MEDS: PANTOPRAZOLE SODIUM 40 MG TABLET.DR PO SCH (06:47)
[2017-07-27 07:58] VITALS: BP 112/68
--- NOTE | 2017-07-27 08:16 | NUR ---
RECEIVED PATIENT AWAKE, ALERT SITTING ON HIS WHEELCHAIR WITH NO SOB, DISTRESS OR DISCOMFORTS. ALL NEEDS WERE ATTENDED AND ANTICIPATED. CALL LIGHT PLACED WITHIN REACH. WILL CONTINUE TO MONITOR.
[2017-07-27] MEDS: LEVETIRACETAM 500 MG TABLET PO SCH (09:07)
[2017-07-27] MEDS: MULTIVIT, IRON, MIN NO. 8, FA TABLET PO SCH (09:07)
[2017-07-27] MEDS: FLUTICASONE/VILANTEROL 1 EACH BLST.W.DEV IH SCH (09:08)
[2017-07-27] MEDS: CHOLECALCIFEROL 1,000 UNIT TABLET PO SCH (09:08)
[2017-07-27] MEDS: FUROSEMIDE 20 MG TABLET PO SCH (09:08)
[2017-07-27] MEDS: LACTOBACILLUS RHAMNOSUS GG 1 EACH CAPSULE PO SCH (09:08)
--- NOTE | 2017-07-27 09:20 | NUR ---
PATIENT NOTED PARTICIPATING WELL IN PHYSICAL THERAPY EXERCISES AT THE REHAB ROOM WITHOUT DIFFICULTY. WILL CONTINUE TO MONITOR.
--- NOTE | 2017-07-27 15:20 | NUR ---
RECEIVED NEW ORDER FROM DR. GAINES TO DISCHARGE THE PATIENT TO [facility] FOR LOWER LEVEL OF CARE. ORDERS NOTED AND CARRIED OUT. CALLED [facility] SPOKE WITH BIENVENIDO LUBIN RECEIVING NURSE IN READING AND PROVIDED HEALTH TEACHING, VERBALIZED UNDERSTANDING. PATIENT MADE AWARE.
--- NOTE | 2017-07-27 16:24 | NUR ---
Patient is awake, lying on bed with stable vital signs with BP: 118/71, TN: 77, RR: 16, oxygen saturation of 96% on room air with clear breath sounds on both lung roberto and temp: 97.8 F taken orally. Photos were taken of patient's skin with patient's approval, placed in the chart. skin remained intact, no wounds or pressure sores. kept clean, dry and comfortable. Call light placed within reach. Per immigration case manager the transportation for the moss picker going to [facility] is on its way. Will continue to follow up.
--- NOTE | 2017-07-27 16:59 | NUR ---
patient awake, alert lying on his bed on a semi- valencia's position, clean and dry. No SOB, distress or discomforts noted. patient is picked up by 2 EMT staff of [facility] from [facility]. No display of discomforts noted. Discharge paper and instructions were given to the EMT staff to be given to the receiving nurse at [facility]. patient left the hospital in stable condition.
== END 2017-07-27 17:00 | DRG 177 ==
PROVIDERS: ADMIT Physical Medicine & Rehabilitation Pain Medicine; ATTEND Physical Medicine & Rehabilitation Pain Medicine
DX: J69.0 Pneumonitis due to inhalation of food and vomit (principal); G93.40 Encephalopathy, unspecified; N17.9 Acute kidney failure, unspecified; D68.59 Other primary thrombophilia; I27.29 Other secondary pulmonary hypertension; I07.1 Rheumatic tricuspid insufficiency; I48.2 Chronic atrial fibrillation; G40.909 Epilepsy, unspecified, not intractable, without status epilepticus; I11.0 Hypertensive heart disease with heart failure; I50.32 Chronic diastolic (congestive) heart failure; J44.1 Chronic obstructive pulmonary disease with (acute) exacerbation; G80.9 Cerebral palsy, unspecified; M41.9 Scoliosis, unspecified; F03.90 Unspecified dementia, unspecified severity, without behavioral disturbance, psychotic disturbance, mood disturbance, and anxiety; I27.81 Cor pulmonale (chronic); K21.9 Gastro-esophageal reflux disease without esophagitis; K59.00 Constipation, unspecified; M81.0 Age-related osteoporosis without current pathological fracture; M47.896 Other spondylosis, lumbar region; J40 Bronchitis, not specified as acute or chronic; R26.9 Unspecified abnormalities of gait and mobility
CPT/HCPCS: 36415; 85025; 92526; 92610; 97110; 97112; 97116; 97165; 97530; 97535; A4663; J0692; J7030; J7060

== ENCOUNTER 2020-10-23 17:53 | Inpatient (IN) | payer MEDICARE, OTHER ==
[~2020-10-23] VITALS: Ht 167.6 cm; Wt 53.5 kg
[~2020-10-23 17:53] MED LIST changes: +CEFE1VIA3 IV; +LACT1CAP57 PO; -OMEP20TA5 PO; +PANT40TA2 PO
[2020-10-23] MEDS ORDERED: MORP20SO SL (18:28)
[2020-10-23] MEDS ORDERED: IPRA4AER PO (18:28)
[2020-10-23] MEDS ORDERED: OMEP20TA5 PO (18:31)
[2020-10-23] MEDS ORDERED: IV NORMAL SALINE 1000 ML BAG IV ONE (19:00)
[2020-10-23 19:05] LABS: BASOPHILS % (AUTO) 0.4 % (0.0-2.0); EOSINOPHILS # (AUTO) 0.3 K/uL (0.0-0.7); EOSINOPHILS % (AUTO) 5.3 % (0.0-7.0); HEMOGLOBIN 12.7 g/dL (12.5-16.3); LYMPHOCYTES # (AUTO) 1.5 K/uL (20.0-40.0); LYMPHOCYTES % (AUTO) 27.5 % (20.5-51.5); MEAN CORPUSCULAR HEMOGLOBIN 33.5 uug (23.8-33.4); MEAN CORPUSCULAR HGB CONC 34 g/dL (32.5-36.3); MEAN CORPUSCULAR VOLUME 99.9 fL (73.0-96.2); MONOCYTES # (AUTO) 0.8 K/uL (2.0-10.0); MONOCYTES % (AUTO) 14.1 % (0.0-11.0); NEUTROPHILS # (AUTO) 2.9 K/uL (1.8-8.9); NEUTROPHILS % (AUTO) 52.7 % (38.5-71.5); PLATELET COUNT (AUTO) 168 K/uL (152-348); WHITE BLOOD COUNT (AUTO) 5.4 K/uL (3.6-10.2)
--- NOTE | 2020-10-23 19:05 | NUR ---
Received patient report from day shift nurse. Patient is resting comfortably in bed currently receiving IV fluids. Patient is alert and oriented and in no signs of SOB or distress.
[2020-10-23 19:14] LABS: CREATININE 1.2 mg/dL (0.6-1.3); POTASSIUM 3.8 mmol/L (3.5-5.1)
[2020-10-23 19:25] LABS: BILIRUBIN,DIRECT 0.2 mg/dL (0.0-0.2); BILIRUBIN,TOTAL 0.5 mg/dL (0.2-1.0); TOTAL PROTEIN, SERUM 6.7 g/dL (6.4-8.2)
--- NOTE | 2020-10-23 19:25 | NUR ---
Chest X-ray shows pneumonia. Dr. Gardner ordering IV ATB and inpatient admission telemetry status.
[2020-10-23] MEDS ORDERED: AZITHROMYCIN IV 500 MG in IV DEXTROSE 5% 250 ML IV ONE (19:30)
[2020-10-23] MEDS ORDERED: CEFTRIAXONE 1 G in IV DEXTROSE 5% 50 ML IV ONE (19:30)
[2020-10-23] MEDS ORDERED: AZITHROMYCIN 500 MG VIAL IV ONE (19:45)
[2020-10-23] MEDS ORDERED: CEFTRIAXONE 1 G VIAL ONE (19:45)
[2020-10-23] MEDS ORDERED: ALBUTEROL SULFATE 2.5 MG/ 0.5 ML NEBU NEB PRN (21:15)
[2020-10-23] MEDS ORDERED: ACETAMINOPHEN 325 MG TABLET PO PRN (21:15)
[2020-10-23] MEDS ORDERED: TEMAZEPAM 15 MG CAPSULE PO PRN (21:15)
[2020-10-23] MEDS ORDERED: MORPHINE SULFATE 2 MG/1 ML DISP.SYRIN IV PRN (21:15)
[2020-10-23] MEDS ORDERED: BISACODYL 10 MG SUPP.RECT RC PRN (21:15)
[2020-10-23] MEDS ORDERED: ONDANSETRON 4 MG/2 ML VIAL IV PRN (21:15)
--- NOTE | 2020-10-23 23:10 | NUR ---
received report from [place] , patient is awake , able to follow and answer simple questions and command , slightly confused , oriented to name , on RA, afib on monitor rate of 70's , denies pain and sob , left hand iv intact , incontinent
--- NOTE | 2020-10-23 23:20 | NUR ---
Patient transferred to Telemetry room 310 via ER [facility]. Report given to receiving RN Tita. Patient transferred in stable condition, alert and oriented, no signs of distress or SOB. All belongings transferred with patient.
[2020-10-23 23:59] VITALS: BP 133/69
[2020-10-24 00:09] VITALS: BP 102/60
[2020-10-24] MEDS ORDERED: Z GUARD REMEDY PASTE 57 GM TUBE TOP PRN (01:00)
--- NOTE | 2020-10-24 01:49 | NUR ---
16 fr mcelroy inserted , clear urine draining
[2020-10-24 04:09] VITALS: BP 115/56
[2020-10-24] MEDS: PANTOPRAZOLE SODIUM 40 MG TABLET.DR PO SCH (06:22)
[2020-10-24 07:12] LABS: BASOPHILS % (AUTO) 0.3 % (0.0-2.0); EOSINOPHILS # (AUTO) 0.3 K/uL (0.0-0.7); HEMATOCRIT 35.4 % (36.7-47.1); HEMOGLOBIN 12.1 g/dL (12.5-16.3); LYMPHOCYTES # (AUTO) 1.5 K/uL (20.0-40.0); LYMPHOCYTES % (AUTO) 20.9 % (20.5-51.5); MEAN CORPUSCULAR HGB CONC 34 g/dL (32.5-36.3); MEAN CORPUSCULAR VOLUME 99.3 fL (73.0-96.2); MONOCYTES # (AUTO) 0.8 K/uL (2.0-10.0); MONOCYTES % (AUTO) 11.3 % (0.0-11.0); NEUTROPHILS # (AUTO) 4.5 K/uL (1.8-8.9); NEUTROPHILS % (AUTO) 63.5 % (38.5-71.5); PLATELET COUNT (AUTO) 147 K/uL (152-348); RED BLOOD CELL COUNT(AUTO) 3.57 MIL/uL (4.06-5.63); WHITE BLOOD COUNT (AUTO) 7.1 K/uL (3.6-10.2)
--- NOTE | 2020-10-24 07:30 | NUR ---
received change of shift report, pt came from [facility]. Pt awake alert and oriented by name and place. pt able to follow commands, on tele monitor a fib, on room air, no signs of distress no reports of pain, pt on cardiac diet. Pt voids via mcelroy, IV access on the right hand 20g, patent, dressing in tact. pt cooperative, call light within reach, bed in low and locked position, fall and safety precautions in place.
[2020-10-24 07:36] LABS: THYROID STIMULATING HORMONE 0.993 mIU/mL (0.358-3.740)
[2020-10-24 07:44] LABS: BILIRUBIN,TOTAL 0.7 mg/dL (0.2-1.0); CREATININE 1.1 mg/dL (0.6-1.3); MAGNESIUM 2.2 mg/dL (1.8-2.4); PHOSPHOROUS 3.1 mg/dL (2.5-4.9); POTASSIUM 3.8 mmol/L (3.5-5.1); TOTAL PROTEIN, SERUM 6.1 g/dL (6.4-8.2)
[2020-10-24 08:00] VITALS: BP 134/58
[2020-10-24] MEDS: levETIRAcetam 250 MG TABLET PO SCH ×2 (08:25→20:39)
[2020-10-24] MEDS: MULTIVIT, IRON, MIN NO. 8, FA TABLET PO SCH (08:25)
[2020-10-24] MEDS: CHOLECALCIFEROL 1,000 UNIT TABLET PO SCH (08:25)
[2020-10-24] MEDS: RIVAROXABAN 15 MG TABLET PO SCH (08:26)
[2020-10-24] MEDS: FLUTICASONE/VILANTEROL 1 EACH BLST.W.DEV IH SCH (09:28)
[2020-10-24 12:34] VITALS: BP 103/52
[2020-10-24 16:15] VITALS: BP 108/64
[2020-10-24 17:20] LABS: *CREATININE,URINE 151.2 mg/dL (30-125); *URINE TOTAL PROTEIN RANDOM 489.8 mg/dL (<150/24HR)
--- NOTE | 2020-10-24 18:20 | NUR ---
pt in bed resting. Pt awake and alert to person and place, able to follow commands easily. cooperative, on first step mattress, tele monitor controlled a fib, on room air, no signs of distress noted, no reports of pain. pt uses mcelroy to void, voiding red-tinged urine MD made aware. pt has right hand 20g IV no fluids infusing. bed in low and locked position, call light within reach, fall and sfaety precautions in place. will endorse to oncoming nurse.
[2020-10-24 20:00] VITALS: BP 109/46
[2020-10-24] MEDS: DOCUSATE SODIUM 100 MG CAPSULE PO SCH (20:39)
[2020-10-25] VITALS: BP 108/46
[2020-10-25 04:00] VITALS: BP 100/55
--- NOTE | 2020-10-25 05:42 | NUR ---
Pt slept throughout the night. No acute distress noted at this time. Denies pain or SOB. A-Fib controlled on monitor. Tea colored urine noted in mcelroy bag, Dr. Duarte notified with orders to hold Xarelto for day shift. Mcelroy bag changed to help monitor urine color and output. Bed is locked and in lowest position, call light within reach. Will endorse to day shift.
[2020-10-25] MEDS: PANTOPRAZOLE SODIUM 40 MG TABLET.DR PO SCH (06:30)
--- NOTE | 2020-10-25 07:30 | NUR ---
pt in bed resting. Pt awake and alert to person and place, able to follow commands easily. cooperative, on first step mattress, tele monitor controlled a fib, on room air, no signs of distress noted, no reports of pain. pt uses mcelroy to void, voiding red-tinged urine MD made aware. pt has right hand 20g IV no fluids infusing. bed in low and locked position, call light within reach, fall and safety precautions in place.
[2020-10-25] MEDS: CHOLECALCIFEROL 1,000 UNIT TABLET PO SCH (08:32)
[2020-10-25] MEDS: MULTIVIT, IRON, MIN NO. 8, FA TABLET PO SCH (08:32)
[2020-10-25] MEDS: levETIRAcetam 250 MG TABLET PO SCH ×2 (08:33→21:31)
[2020-10-25] MEDS: FLUTICASONE/VILANTEROL 1 EACH BLST.W.DEV IH SCH (08:33)
[2020-10-25] MEDS: RIVAROXABAN 15 MG TABLET PO SCH (08:35)
[2020-10-25] MEDS: FUROSEMIDE 20 MG TABLET PO SCH (08:39)
--- NOTE | 2020-10-25 10:00 | NUR ---
mcelroy removed, will continue to monitor pt
[2020-10-25] MEDS ORDERED: TEMAZEPAM 7.5 MG CAPSULE PO PRN (10:45)
[2020-10-25 11:52] VITALS: BP 119/77
[2020-10-25 16:00] VITALS: BP 103/53
[2020-10-25] MEDS: ENSURE ENLIVE (VAN) 240 ML LIQUID PO SCH (17:20)
--- NOTE | 2020-10-25 18:31 | NUR ---
pt in bed watching tv, resting. pt is awake and alert x2 (person, place) pt able to follow commands, and respond properly to questions. pt is very pleasant, willing to eat by himself but requires help as his hands are very shaky. pt has malnutrition alert, pt is willing to take the help when given, needs help with feeding and cutting food. no skin issues, on room air, no signs of distress, no reports of pain at this time. Pt is on bedrest, first step air mattress on bed, oral care q2h, pt no longer voiding bloody urine. IV on the right hand 20g. bed in low and locked position, call light within reach, fall and safety precautions in place, will endorse to oncoming nurse.
--- NOTE | 2020-10-25 19:30 | NUR ---
Received pt in bed, sleeping but easily arousable to name and light touch. Pt able to follow simple commands. No s/s of respiratory distress, no pain or discomfort noted. Repositioned comfortably in bed, safety measures initiated, will continue to monitor.
[2020-10-25 20:00] VITALS: BP 112/55
[2020-10-25] MEDS: DOCUSATE SODIUM 100 MG CAPSULE PO SCH (21:31)
[2020-10-26 04:00] VITALS: BP 108/57
[2020-10-26] MEDS: PANTOPRAZOLE SODIUM 40 MG TABLET.DR PO SCH (06:30)
--- NOTE | 2020-10-26 06:50 | NUR ---
Pt in bed, slept through the night, no s/s of respiratory distress, no pain or discomfort noted. Medications tolerated well. Assisted with fluid intake. Oral care done q2hrs, repositioned q2hrs. Safety measures maintained at all times, all needs attended.
--- NOTE | 2020-10-26 07:30 | NUR ---
received change of shift report. pt on room air, no signs of distress, no reports of pain at this time. pt is alert and orientedx2, follows commands easily. pt is cooperative. fall and safety precautions in place, on air mattress, call light within reach, will continue to monitor.
[2020-10-26] MEDS: FLUTICASONE/VILANTEROL 1 EACH BLST.W.DEV IH SCH (08:57)
[2020-10-26] MEDS: levETIRAcetam 250 MG TABLET PO SCH (08:58)
[2020-10-26] MEDS: MULTIVIT, IRON, MIN NO. 8, FA TABLET PO SCH (08:58)
[2020-10-26] MEDS: RIVAROXABAN 15 MG TABLET PO SCH (09:02)
[2020-10-26] MEDS: CHOLECALCIFEROL 1,000 UNIT TABLET PO SCH (09:02)
[2020-10-26] MEDS: FUROSEMIDE 20 MG TABLET PO SCH (09:02)
[2020-10-26] MEDS: ENSURE ENLIVE (VAN) 240 ML LIQUID PO SCH (09:02)
[2020-10-26] MEDS ORDERED: TEMA7.5C PO (09:59)
[2020-10-26] MEDS ORDERED: Lactose-Free Food PO (09:59)
[2020-10-26] MEDS ORDERED: ALBU2.5V13 NEB (09:59)
[2020-10-26 12:00] VITALS: BP 105/50
--- NOTE | 2020-10-26 13:10 | NUR ---
[facility] to [facility]. Pt left with all belongings, and paperwork was given to fire equipment inspector helper. pt left via ambulance, vitals WNL, BP105/50, temp 97.5, pulse 83, resp rate 20, O2 98% on room air. pt awake and alert, follows commands, cooperative, ID band removed prior to discharge. pt left with all belongings, report given to BIENVENIDO Everett at [facility].
== END 2020-10-26 13:10 | DRG 291 ==
LOC: ER 17:55 → TELE3 23:06 → MEDSURG3 10-25 11:03
PROVIDERS: ADMIT Internal Medicine; ATTEND Internal Medicine
DX: I50.43 Acute on chronic combined systolic (congestive) and diastolic (congestive) heart failure (principal); N17.0 Acute kidney failure with tubular necrosis; I48.20 Chronic atrial fibrillation, unspecified; D68.69 Other thrombophilia; Z68.1 Body mass index [BMI] 19.9 or less, adult; Z87.01 Personal history of pneumonia (recurrent); G80.9 Cerebral palsy, unspecified; I27.29 Other secondary pulmonary hypertension; G40.909 Epilepsy, unspecified, not intractable, without status epilepticus; I25.10 Atherosclerotic heart disease of native coronary artery without angina pectoris; I27.81 Cor pulmonale (chronic); J44.9 Chronic obstructive pulmonary disease, unspecified; Z20.822 Contact with and (suspected) exposure to COVID-19; Z79.01 Long term (current) use of anticoagulants; Z74.09 Other reduced mobility; K59.00 Constipation, unspecified; I27.20 Pulmonary hypertension, unspecified; M19.90 Unspecified osteoarthritis, unspecified site; M85.661 Other cyst of bone, right lower leg; D53.9 Nutritional anemia, unspecified; I08.2 Rheumatic disorders of both aortic and tricuspid valves; R62.7 Adult failure to thrive; M41.9 Scoliosis, unspecified; N18.9 Chronic kidney disease, unspecified
CPT/HCPCS: 36415; 70030-TC; 71045; 83605; 83735; 84100; 84156; 84300; 84443; 85025; 87040; 93005; 93307; A4663; G0378; J0456; J0696; J7030; J7060; U0003